=== PATIENT | male | born 1995 | race African-American/Black ===

== ENCOUNTER 2022-02-16 05:01 | Day surgery (SDC) | payer OTHER ==
[~2022-02-16] VITALS: Ht 170.2 cm; Wt 103.7 kg
[2022-02-16] VITALS (8 sets, daily range): BP systolic 110–132; BP diastolic 52–97
[~2022-02-16 05:01] MED LIST: ACET1TAB96 PO; CALC625T9 PO; HYDR-3686 PO; LEVO500T90 PO; LORA10TA7 PO; MIRT45TA79 PO; MONT-40 PO; SENN-263 PO; SERT150C PO; TRIA10.8 BOTHNARES
[2022-02-16] MEDS ORDERED: ceFAZolin inj. 2,000 MG in dextrose 5%-water 100 ML IV ONE (05:30)
[2022-02-16] MEDS ORDERED: famotidine 20mg tablet PO ONE (05:30)
[2022-02-16] MEDS ORDERED: chlorhexidine gluc 4% **topical ** 120ml btl. TP ONE (05:30)
[2022-02-16] MEDS ORDERED: ROPIVAcaine 0.5% (5mg/ml) 30ml vial ONE ×2 (07:11→07:26)
[2022-02-16] MEDS ORDERED: fentaNYL/PF 50MCG/1 ML 2ML syringe ONE (07:15)
[2022-02-16] MEDS ORDERED: acetaminophen 1,000mg/100ml IV 100 ML IV ONE (07:16)
[2022-02-16] MEDS ORDERED: ondansetron/PF 4mg/2ml inj ONE (07:16)
[2022-02-16] MEDS ORDERED: propofol inj 20 ML IV ONE (07:16)
[2022-02-16] MEDS ORDERED: dexamethasone sod phosphate 4mg/ml inj. ONE (07:16)
[2022-02-16] MEDS ORDERED: LIDOcaine 1%/PF 5ML 10 MG/ML VIAL ONE (07:16)
[2022-02-16] MEDS ORDERED: hydrALAZINE 20mg/ml inj. IV PRN (07:25)
[2022-02-16] MEDS ORDERED: epiNEPHrine 1 mg/ml inj ONE (07:25)
[2022-02-16] MEDS ORDERED: morphine 2 MG/ML inj. syringe IV PRN (07:25)
[2022-02-16] MEDS ORDERED: labetalol 20mg/4ml (5mg/ml) syringe IV PRN (07:25)
[2022-02-16] MEDS ORDERED: ringers solution, lacted 1,000 ML IV SCH (07:25)
[2022-02-16] MEDS ORDERED: morphine 4 MG/ML inj SYRINge IV PRN (07:25)
[2022-02-16] MEDS ORDERED: fentaNYL/PF 50MCG/1 ML 2ML syringe IV PRN ×2 (07:25)
[2022-02-16] MEDS ORDERED: ondansetron/PF 4mg/2ml inj IV PRN (07:25)
[2022-02-16] MEDS ORDERED: Thrombin (Bovine) 5,000 unit vial TP ONE (07:26)
[2022-02-16] MEDS ORDERED: gelatin sponge, absorbable (Gelfoam 100) sponge TP ONE (07:26)
[2022-02-16] MEDS ORDERED: sevoflurane 250ml liquid IH ONE (08:15)
[2022-02-16] MEDS ORDERED: midazolam 1 mg/ML 2ml injection ONE (08:51)
--- NOTE | 2022-02-16 10:15 | NUR ---
Received from OR via , accompanied by Anesthesiologist and report given by Anesthesiolgist. PATIENT WAKING UP, DENIES PAIN, V/S WNL, SCD ON , PIV 20G RUE, DRESSING LEFT KNEE CDI WITH BRACE LOCKED INTO EXTENSION. 2 SECURITY GUARDS IN ROOM.
--- NOTE | 2022-02-16 11:15 | NUR ---
PATIENT A&OX4, 09/09 PAIN, V/S WNL, SCD OFF , PIV 20G RUE D/C, DRESSING LEFT KNEE CDI WITH BRACE LOCKED INTO EXTENSION. 2 SECURITY GUARDS IN ROOM. I HAVE REVIEWED D/C INSTRUCTIONS WITH PATIENT AND GUARDS AND THEY HAVE VERBALIZED UNDERSTANDING . PATIENT D/C WITH ALL BELONGINGS WITH GUARDS TRANSPORT.
[2022-02-17] MEDS ORDERED: ringers solution, lacted 1,000 ML IV SCH (05:00)
== END 2022-02-16 11:15 ==
LOC: PAS 05:01 → EEVIPCON 10:30 → PAS 11:15
PROVIDERS: ATTEND Orthopaedic Surgery
DX: S83.512A Sprain of anterior cruciate ligament of left knee, initial encounter (principal); S83.242A Other tear of medial meniscus, current injury, left knee, initial encounter; S83.282A Other tear of lateral meniscus, current injury, left knee, initial encounter; F41.9 Anxiety disorder, unspecified; F31.9 Bipolar disorder, unspecified; M23.42 Loose body in knee, left knee; X58.XXXA Exposure to other specified factors, initial encounter; Y93.89 Activity, other specified; Y92.89 Other specified places as the place of occurrence of the external cause; Y99.8 Other external cause status; Z79.899 Other long term (current) drug therapy; G89.18 Other acute postprocedural pain; Z87.891 Personal history of nicotine dependence
CPT/HCPCS: 29880; 29888; 64447; 76942; 82948; C1713; C1762; J0131; J0690; J1100; J2250; J2405; J2704; J2795; J3010; J3490; J7030; J7060; J7120; L1832; Z7506; Z7508; Z7512; A4215; A4618; A6449; A7000; J0171